=== PATIENT | male | born 1995 | race American Indian/Alaskan Native ===

== ENCOUNTER 2017-10-29 21:20 | Emergency (ER) | payer SELFPAY ==
[2017-10-29 21:47] VITALS: BP 127/71
== END 2017-10-29 21:35 | disposition left against medical advice (07) ==
LOC: ED 21:20
DX: L02.91 Cutaneous abscess, unspecified (principal); Z53.21 Procedure and treatment not carried out due to patient leaving prior to being seen by health care provider

== ENCOUNTER 2021-09-08 20:32 | Emergency (ER) | payer SELFPAY ==
[2021-09-08 22:07] VITALS: BP 116/86
== END 2021-09-08 22:07 | disposition left against medical advice (07) ==
LOC: ED 20:32
DX: S49.91XA Unspecified injury of right shoulder and upper arm, initial encounter (principal); Z53.21 Procedure and treatment not carried out due to patient leaving prior to being seen by health care provider; X58.XXXA Exposure to other specified factors, initial encounter; Y93.89 Activity, other specified; Y92.89 Other specified places as the place of occurrence of the external cause; Y99.8 Other external cause status

== ENCOUNTER 2021-12-12 23:14 | Emergency (ER) | payer SELFPAY ==
[2021-12-13 01:15] VITALS: BP 103/52
--- NOTE | 2021-12-13 02:42 | XRay Report ---
LEFT TIBIA-FIBULA 2 VIEW(S) INDICATION / CLINICAL INFORMATION: injury COMPARISON: None available. FINDINGS: No fracture, dislocation, or significant soft tissue abnormality is demonstrated. No radiopaque forei gn bodies are identified. IMPRESSION: 1. No acute pathology. Signer Name: Jose Segal II, MD Signed: 12/13/2021 2:38 AM Workstation Name: [id number]
--- NOTE | 2021-12-13 02:45 | XRay Report ---
RIGHT WRIST 4 VIEW(S) INDICATION / CLINICAL INFORMATION: injury COMPARISON: None available. FINDINGS: Osseous deformity involving the base of the small finger metacarpal is demonstrated, appearance sugge sts chronicity. Carpal bones appear intact. No dislocation of the wrist is demonstrated. Soft tissues appear grossly intact. No radiopaque foreign body. IMPRESSION: 1. Osseous deformity involving the base of the small finger metacarpal as detailed. No acute findings involving the right wrist. Signer Name: Jose Segal II, MD Signed: 12/13/2021 2:40 AM Workstation Name: [id number]
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
== END 2021-12-13 05:55 | disposition home or self-care (01) ==
LOC: ED 23:14
DX: M79.18 Myalgia, other site (principal); J45.909 Unspecified asthma, uncomplicated; Z21 Asymptomatic human immunodeficiency virus [HIV] infection status
CPT/HCPCS: 99283